=== PATIENT | female | born 1985 | race Caucasian/White ===

== ENCOUNTER 2020-07-30 14:26 | Outpatient (CLI) | payer OTHER ==
--- NOTE | 2020-07-30 14:51 | RAD ---
LEFT WRIST 3 VIEWS: HISTORY: Disability evaluation. COMPARISON: None. FINDINGS: Sclerosis and remodeling involving the distal radius, likely representing chronic change. Intercarpal and radiocarpal joint spaces are preserved. Mild negative ulnar variance. IMPRESSION: Chronic changes are suspected. Additional imaging if clinically warranted. Transcribed Date/Time: 07/30/2020 3:12 PM
== END 2020-07-30 14:27 | disposition home or self-care (01) ==
LOC: BICRAD 14:26
PROVIDERS: ATTEND Internal Medicine
DX: Z02.71 Encounter for disability determination (principal)

== ENCOUNTER 2021-09-25 10:53 | Outpatient (CLI) | payer OTHER ==
[2021-09-25 11:37] LABS: #Basophils 0.1 10x3/uL (0.0-0.2); #Eosinphils 0.3 10x3/uL (0.0-0.5); #Monocytes 0.6 10x3/uL (0.0-1.1); %Basophils 0.9 % (0.0-2.0); %Eosinophils 3.2 % (0.0-6.0); %Lymphocytes 39.9 % (18.0-47.0); %Monocytes 5.7 % (0.0-10.0); %Neutrophils 50.1 % (40.0-75.0); Mean Corpuscular HGB CONC 33.6 g/dL (32.0-36.0); Mean Corpuscular Hemoglobin 29.9 pg (27.0-33.0); Mean Corpuscular Volume 89.1 fl (81.6-98.3); Mean Platelet Volume 11.2 fl (7.4-10.4); Platelet Count 219 10x3/uL (150-450); RBC Distribution Width 12.1 % (11.5-14.5); Red Blood Cell (RBC) Count 4.68 10x6/uL (3.90-5.03); White Blood Cell (WBC) Count 9.9 10x3/uL (3.5-10.5)
[2021-09-25 11:42] LABS: Bilirubin Neg (Negative); Blood, Urine Negative (Negative); Clarity Cloudy (Clear); Glucose, Urine (Dipstick) Normal (Negative); Ketone, Urine Negative (Negative); Leukocyte 25 (Negative); Nitrite Negative (Negative); Protein, Urine (Dipstick) 15 mg/dl (Neg-Trace); Urobilinogen Normal mg/dL (Less than 2)
[2021-09-26 21:04] LABS: SARS-CoV-2 PCR by NAA Not Detected (NotDetected)
== END 2021-09-25 10:54 | disposition home or self-care (01) ==
LOC: LABBT 10:53
PROVIDERS: ATTEND Orthopaedic Surgery Hand Surgery
DX: Z01.812 Encounter for preprocedural laboratory examination (principal); S62.102P Fracture of unspecified carpal bone, left wrist, subsequent encounter for fracture with malunion; Z20.822 Contact with and (suspected) exposure to COVID-19
CPT/HCPCS: 81003; 85025; U0003; U0005

== ENCOUNTER 2021-09-30 10:43 | Inpatient (IN) | payer OTHER ==
[2021-09-30] MEDS ORDERED: Bupivacaine PF 0.5% 30 ML VIAL ONE ×2 (13:21→17:39)
[2021-09-30] MEDS ORDERED: EPINEPHrine 1 MG/ML AMP ONE (13:21)
[2021-09-30] MEDS ORDERED: Bacitracin Zinc Ointment 30 gm TUBE ONE (13:21)
[2021-09-30] MEDS ORDERED: ceFAZolin Sodium (SDC) 2 GM/100 ML BAG ONE (13:30)
[2021-09-30] MEDS ORDERED: Midazolam HCl 2 mg/2 ml Vial ONE ×2 (14:40→15:46)
[2021-09-30] MEDS ORDERED: Thrombin 5000 UNITS/5 ML VIAL ONE (14:49)
[2021-09-30] MEDS ORDERED: Fentanyl 100 MCG/2 ML VIAL ONE ×4 (14:50→20:30)
[2021-09-30] MEDS ORDERED: Ondansetron PF 4 MG/2 ML Vial ONE ×2 (15:42→20:14)
[2021-09-30] MEDS ORDERED: Bupivacaine HCl 0.5%/Epinephrine 1:200,000/PF 30 ml Vial ONE (15:42)
[2021-09-30] MEDS ORDERED: Lidocaine 1% PF 5 ML VIAL ONE (15:42)
[2021-09-30] MEDS ORDERED: Dexamethasone 20 MG/5 ML VIAL ONE (15:42)
[2021-09-30] MEDS ORDERED: PROPOFOL 200 MG/20 ML VIAL ONE (15:42)
[2021-09-30] MEDS ORDERED: Meperidine HCl/PF 25 MG/ML VIAL ONE (20:10)
[2021-09-30] MEDS ORDERED: Promethazine HCl 25 MG/ML VIAL IM PRN (20:13)
[2021-09-30] MEDS ORDERED: Promethazine HCl 25 MG/ML VIAL IVPB PRN (20:13)
[2021-09-30] MEDS ORDERED: Ondansetron HCl/PF 4 MG/2 ML Vial IVP PRN (20:13)
[2021-09-30] MEDS ORDERED: Promethazine HCl 25 MG/ML VIAL ONE (20:19)
[2021-09-30] MEDS ORDERED: Milk Of Magnesia 30 ML UDCUP PO PRN (20:20)
[2021-09-30] MEDS ORDERED: Bisacodyl 10 MG SUPP PR PRN (20:20)
[2021-09-30] MEDS ORDERED: Meperidine HCl/PF 25 MG/ML VIAL IM PRN (20:25)
[2021-09-30] MEDS ORDERED: TETANUS AND DIPHTHERIA TOX/PF 0.5 ML DISP.SYRIN IM SCH (20:30)
[2021-09-30] MEDS ORDERED: Communication Order-Pharmacy FS PRN (20:30)
[2021-09-30] MEDS ORDERED: Vancomycin 1 GM in Premix Bag 1 BAG IVPB SCH (21:00)
[2021-09-30] MEDS: Sodium Chloride 0.9% 100 ML IV SCH ×4 (21:47→23:36)
[2021-09-30] MEDS ORDERED: Vancomycin HCl 1.5 GM in Sodium Chloride 0.9% 250 ML 300 ML IVPB SCH (22:00)
[2021-09-30 22:29] VITALS: BMI 35.0
[2021-09-30] MEDS: HYDROcodone/Acetaminophen 10/325 mg Tablet PO PRN (22:42)
[2021-09-30] MEDS: Promethazine HCl 25 MG/ML VIAL IM PRN (22:43)
[2021-09-30] MEDS: Aspirin 81 mg Enteric Coated Tablet PO SCH (22:44)
[2021-10-01] MEDS: Sodium Chloride 0.9% 100 ML IV SCH ×2 (01:12→01:41)
[2021-10-01] MEDS: Sodium Chloride 0.9% 1,000 ML IV SCH ×3 (02:28→19:56)
[2021-10-01] MEDS: HYDROcodone/Acetaminophen 10/325 mg Tablet PO PRN ×6 (02:38→23:05)
[2021-10-01 04:31] LABS: #Basophils 0.1 thou/uL (0.0-0.2); #Lymphocytes 3.5 thou/uL (1.20-3.40); #Monocytes 1.4 thou/uL (0.11-0.59); #Neutrophils 12.4 thou/uL (1.40-6.50); %Basophils 0.3 % (0.0-1.0); %Eosinophils 0.1 % (0.0-10.0); %Lymphocytes 20.2 % (21.0-51.0); %Monocytes 8.3 % (0.0-10.0); %Neutrophils 71.1 % (42.0-75.0); Hemoglobin 11.9 g/dL (12.0-16.0); Mean Corpuscular HGB CONC 34.2 g/dL (32.0-36.0); Mean Corpuscular Hemoglobin 31.6 pg (27.0-31.0); Mean Corpuscular Volume 92.4 fL (78.0-98.0); Mean Platelet Volume 8.4 fL (7.4-10.4); Platelet Count 201 thou/uL (130-400); RBC Distribution Width 11.4 % (11.5-14.5); Red Blood Cell (RBC) Count 3.77 mill/uL (4.20-5.40); White Blood Cell (WBC) Count 17.4 thou/uL (4.8-10.8)
[2021-10-01] MEDS: Aspirin 81 mg Enteric Coated Tablet PO SCH ×2 (07:20→20:07)
[2021-10-01] MEDS: Vancomycin HCl 1.25 GM in Sodium Chloride 0.9% 250 ML 250 ML IVPB SCH ×2 (10:54→23:04)
[2021-10-01] MEDS: Promethazine HCl 25 MG/ML VIAL IM PRN ×2 (12:45→17:09)
[2021-10-01] MEDS: traMADol HCl 50 MG TAB PO PRN ×2 (13:58→20:07)
[2021-10-01] MEDS: Morphine 4 MG/ML VIAL SLOW IVP PRN ×3 (17:10→22:07)
[2021-10-02] MEDS: Morphine 4 MG/ML VIAL SLOW IVP PRN ×3 (00:05→08:06)
[2021-10-02] MEDS: traMADol HCl 50 MG TAB PO PRN (02:17)
[2021-10-02] MEDS: HYDROcodone/Acetaminophen 10/325 mg Tablet PO PRN ×2 (05:11→09:39)
[2021-10-02 05:20] VITALS: BP 123/84; TEMP 98.6
[2021-10-02] MEDS: Sodium Chloride 0.9% 1,000 ML IV SCH (06:03)
[2021-10-02] MEDS ORDERED: Morphine 4 MG/ML VIAL SLOW IVP SCH (07:45)
[2021-10-02] MEDS ORDERED: Ondansetron PF 4 MG/2 ML Vial IVP SCH (07:45)
[2021-10-02] MEDS: Aspirin 81 mg Enteric Coated Tablet PO SCH (08:01)
[2021-10-03] MEDS ORDERED: FLU VACC QS2021-22(6MOS UP)/PF 60 MCG/0.5 ML SYRINGE IM ONE (09:00)
== END 2021-10-02 10:54 | disposition home or self-care (01) | DRG 511 ==
LOC: SDC 10:43 → SURG A 20:20
PROVIDERS: ADMIT Orthopaedic Surgery Hand Surgery; ATTEND Orthopaedic Surgery Hand Surgery
PROC: 0PUJ07Z Supplement Left Radius with Autologous Tissue Substitute, Open Approach (ICD-10-PCS; principal; 2021-09-30)
PROC: 0PSJ04Z Reposition Left Radius with Internal Fixation Device, Open Approach (ICD-10-PCS; 2021-09-30)
PROC: 0QB30ZZ Excision of Left Pelvic Bone, Open Approach (ICD-10-PCS; 2021-09-30)
DX: S52.502P Unspecified fracture of the lower end of left radius, subsequent encounter for closed fracture with malunion (principal); Q68.1 Congenital deformity of finger(s) and hand; Z20.822 Contact with and (suspected) exposure to COVID-19; J45.909 Unspecified asthma, uncomplicated; G89.29 Other chronic pain; G43.909 Migraine, unspecified, not intractable, without status migrainosus; F17.210 Nicotine dependence, cigarettes, uncomplicated; I10 Essential (primary) hypertension; E66.9 Obesity, unspecified; F41.9 Anxiety disorder, unspecified; F31.9 Bipolar disorder, unspecified; Z79.899 Other long term (current) drug therapy; Z79.51 Long term (current) use of inhaled steroids; Z68.35 Body mass index [BMI] 35.0-35.9, adult; Z88.1 Allergy status to other antibiotic agents; Z88.8 Allergy status to other drugs, medicaments and biological substances; W17.89XD Other fall from one level to another, subsequent encounter
CPT/HCPCS: 36415; 76000; 82565; 85025; C1713; J0171; J0690; J1100; J2175; J2250; J2270; J2405; J2550; J2704; J3010; J3370; J7050; S0020

== ENCOUNTER 2022-07-04 11:21 | Outpatient (CLI) | payer OTHER ==
[2022-07-04 12:11] LABS: #Basophils 0.1 10x3/uL (0.0-0.2); #Eosinphils 0.3 10x3/uL (0.0-0.5); #Monocytes 0.7 10x3/uL (0.0-1.1); #Neutrophils 6.7 10x3/uL (1.5-8.4); %Basophils 0.7 % (0.0-2.0); %Eosinophils 2.2 % (0.0-6.0); %Lymphocytes 31.6 % (18.0-47.0); %Monocytes 6.2 % (0.0-10.0); Hemoglobin 14.2 g/dL (12.0-15.5); Mean Corpuscular HGB CONC 33.7 g/dL (32.0-36.0); Mean Corpuscular Hemoglobin 28.7 pg (27.0-33.0); Mean Corpuscular Volume 85.2 fl (81.6-98.3); Platelet Count 257 10x3/uL (150-450); RBC Distribution Width 12.5 % (11.5-14.5); Red Blood Cell (RBC) Count 4.94 10x6/uL (3.90-5.03); White Blood Cell (WBC) Count 11.4 10x3/uL (3.5-10.5)
[2022-07-04 12:31] LABS: BHCG - Serum Negative (NEGATIVE); Pregs Control Background? CLEAR/WHITE (CLR/WHITE); Pregs Control Bar Appear? YES (CONTROL BAR)
== END 2022-07-04 11:22 | disposition home or self-care (01) ==
LOC: LABBT 11:21
PROVIDERS: ATTEND Orthopaedic Surgery Hand Surgery
DX: Z01.812 Encounter for preprocedural laboratory examination (principal); T84.84XA Pain due to internal orthopedic prosthetic devices, implants and grafts, initial encounter; M65.832 Other synovitis and tenosynovitis, left forearm; Z20.822 Contact with and (suspected) exposure to COVID-19
CPT/HCPCS: 84703; 85025; 87811

== ENCOUNTER 2022-07-08 09:26 | Day surgery (SDC) | payer OTHER ==
[2022-07-03 09:57] VITALS: BMI 35.2
[2022-07-08] MEDS ORDERED: Midazolam HCl 2 mg/2 ml Vial ONE (10:52)
[2022-07-08] MEDS ORDERED: Vancomycin 1 GM/200 ML BAG ONE (11:06)
[2022-07-08] MEDS ORDERED: fentaNYL Citrate/PF 100 MCG/2 ML SYRINGE ONE ×2 (11:07→13:36)
[2022-07-08] MEDS ORDERED: Bupivacaine HCl 0.5%/Epinephrine 1:200,000/PF 30 ml Vial ONE (11:15)
[2022-07-08] MEDS ORDERED: Ropivacaine 2% HCl/PF (20 MG/10 ML VIAL) ONE (11:15)
[2022-07-08] MEDS ORDERED: Bacitracin Zinc Ointment 30 gm TUBE ONE (12:33)
[2022-07-08] MEDS ORDERED: Bupivacaine PF 0.5% 30 ML VIAL ONE (12:33)
[2022-07-08] MEDS ORDERED: Neomycin-Polymyxin 1 ML AMP ONE (12:33)
[2022-07-08] MEDS ORDERED: Dexamethasone 20 MG/5 ML VIAL ONE (13:36)
[2022-07-08] MEDS ORDERED: PROPOFOL 200 MG/20 ML VIAL ONE (13:36)
[2022-07-08] MEDS ORDERED: Ondansetron PF 4 MG/2 ML Vial ONE (13:36)
[2022-07-08] MEDS ORDERED: Lidocaine 1% MPF 2 ML VIAL ONE (13:36)
[2022-07-08] MEDS ORDERED: Fentanyl 100 MCG/2 ML VIAL ONE (15:01)
== END 2022-07-08 16:26 | disposition home or self-care (01) ==
LOC: SDC 09:26
PROVIDERS: ATTEND Orthopaedic Surgery Hand Surgery
PROC: 0LB60ZZ Excision of Left Lower Arm and Wrist Tendon, Open Approach (ICD-10-PCS; principal; 2022-07-08)
PROC: 0PPJ04Z Removal of Internal Fixation Device from Left Radius, Open Approach (ICD-10-PCS; principal; 2022-07-08)
DX: M65.832 Other synovitis and tenosynovitis, left forearm (principal); T84.84XA Pain due to internal orthopedic prosthetic devices, implants and grafts, initial encounter; J45.909 Unspecified asthma, uncomplicated; F17.210 Nicotine dependence, cigarettes, uncomplicated; Q68.1 Congenital deformity of finger(s) and hand; M79.2 Neuralgia and neuritis, unspecified; Z79.899 Other long term (current) drug therapy; Z88.0 Allergy status to penicillin; Z88.1 Allergy status to other antibiotic agents
CPT/HCPCS: 76000; 88304; J1100; J2250; J2405; J2704; J2795; J3010; J3370; S0020

== ENCOUNTER 2023-04-24 09:18 | Outpatient (CLI) | payer OTHER | END 2023-04-24 09:19 | disposition home or self-care (01) | LOC: MRI 09:18 → BICMRI 09:19 | PROVIDERS: ATTEND Psychiatry & Neurology Neurology | DX: R41.3 Other amnesia (principal) | CPT/HCPCS: 70551 ==

== ENCOUNTER 2023-06-11 13:20 | Outpatient (CLI) | payer OTHER | END 2023-06-11 13:21 | disposition home or self-care (01) | LOC: EEG 13:20 | PROVIDERS: ATTEND Psychiatry & Neurology Neurology | DX: R41.3 Other amnesia (principal) | CPT/HCPCS: 95816; 95957 ==

== ENCOUNTER 2023-07-07 12:55 | Outpatient (CLI) | payer OTHER ==
[~2023-07-07 12:55] MED LIST: Magnevist 469MG/ML 20 ML VIAL ONE
== END 2023-07-07 12:56 | disposition home or self-care (01) ==
LOC: MRI 12:55
PROVIDERS: ATTEND Psychiatry & Neurology Neurology
DX: R41.3 Other amnesia (principal); R94.01 Abnormal electroencephalogram [EEG]
CPT/HCPCS: 70553; A9579